=== PATIENT | female | born 1985 | race Caucasian/White ===

== ENCOUNTER → 2020-07-15 | Outpatient (CLI) | payer OTHER ==
[2020-07-15 09:19] LABS: BASO # 0.1 10^3/uL (0.0-0.2); BASO % 1.4 % (0.0-1.0); EOS # 0.2 10^3/uL (0.0-0.5); EOS % 3.1 % (0.0-3.0); HEMATOCRIT 42.2 % (36.0-47.0); HEMOGLOBIN 13.7 g/dl (12.0-15.5); LYMPH # 2.7 10^3/uL (1.5-5.0); MEAN CORPUSCULAR HEMOGLOBIN 27.1 pg (27.0-33.0); MEAN CORPUSCULAR HGB CONC 32.5 g/dl (32.0-36.5); MEAN CORPUSCULAR VOLUME 83.6 fl (80.0-96.0); MONO # 0.6 10^3/uL (0.0-0.8); MONO % 8.4 % (0.0-5.0); NEUTROPHILS % 45.8 % (36.0-66.0); PLATELET COUNT, AUTOMATED 321 10^3/uL (150-450); RED BLOOD COUNT 5.05 10^6/uL (4.00-5.40); WHITE BLOOD COUNT 6.5 10^3/uL (4.0-10.0)
[2020-07-15 10:31] LABS: ALBUMIN 3.5 GM/DL (3.2-5.2); ALT/SGPT 15 U/L (12-78); BILIRUBIN,TOTAL 0.4 MG/DL (0.2-1.0); BLOOD UREA NITROGEN 13 MG/DL (7-18); CALCIUM LEVEL 9.1 MG/DL (8.5-10.1); CARBON DIOXIDE LEVEL 25 MEQ/L (21-32); CHLORIDE LEVEL 107 MEQ/L (98-107); CHOLESTEROL LEVEL 192 MG/DL (<200); CHOLESTEROL RISK RATIO 5.189 (<5); CREATININE FOR GFR 1.02 MG/DL (0.55-1.30); GLOMERULAR FILTRATION RATE > 60.0 (>60); GLUCOSE, FASTING 98 MG/DL (70-100); HDL CHOLESTEROL 37 MG/DL (>40); LDL CHOLESTEROL 110 MG/DL (<100); NON-HDL-C 155 MG/DL; POTASSIUM SERUM 4.8 MEQ/L (3.5-5.1); SODIUM LEVEL 139 MEQ/L (136-145); TOTAL PROTEIN 6.9 GM/DL (6.4-8.2); TRIGLYCERIDES LEVEL 225 MG/DL (<150)
== END ==
LOC: M LAB 08:42
PROVIDERS: ATTEND Physician Assistant
DX: D72.829 Elevated white blood cell count, unspecified (principal); R73.03 Prediabetes

== ENCOUNTER → 2020-10-06 | Outpatient (CLI) | payer OTHER, MEDICAID | LOC: M LAB 09:24 | PROVIDERS: ATTEND Psychiatry & Neurology Psychiatry | DX: Z51.81 Encounter for therapeutic drug level monitoring (principal) ==

== ENCOUNTER → 2020-10-21 | Outpatient (CLI) | payer OTHER | LOC: M LAB 11:40 | PROVIDERS: ATTEND Psychiatry & Neurology Psychiatry | DX: Z51.81 Encounter for therapeutic drug level monitoring (principal) ==

== ENCOUNTER → 2021-04-21 | Outpatient (CLI) | payer OTHER, MEDICAID ==
[2021-04-21 12:49] LABS: HEMATOCRIT 43.7 % (36.0-47.0); HEMOGLOBIN 14.6 g/dl (12.0-15.5); MEAN CORPUSCULAR HEMOGLOBIN 28.7 pg (27.0-33.0); MEAN CORPUSCULAR HGB CONC 33.4 g/dl (32.0-36.5); MEAN CORPUSCULAR VOLUME 85.9 fl (80.0-96.0); PLATELET COUNT, AUTOMATED 323 10^3/uL (150-450); RED BLOOD COUNT 5.09 10^6/uL (4.00-5.40); WHITE BLOOD COUNT 6.9 10^3/uL (4.0-10.0)
[2021-04-21 13:24] LABS: ERYTHROCYTE SEDIMENTATION RATE 4 mm/hr (0-20)
[2021-04-21 13:46] LABS: ALBUMIN 3.2 GM/DL (3.2-5.2); ALT/SGPT 16 U/L (12-78); BILIRUBIN,TOTAL 0.2 MG/DL (0.2-1.0); BLOOD UREA NITROGEN 11 MG/DL (7-18); CALCIUM LEVEL 9.3 MG/DL (8.5-10.1); CARBON DIOXIDE LEVEL 24 MEQ/L (21-32); CHLORIDE LEVEL 109 MEQ/L (98-107); COMPLEMENT C3 135 MG/DL (90-180); CREATININE FOR GFR 0.85 MG/DL (0.55-1.30); FREE THYROXINE INDEX 3.7 % (1.3-4.8); GLOMERULAR FILTRATION RATE > 60.0 (>60); GLUCOSE, FASTING 101 MG/DL (70-100); POTASSIUM SERUM 4.7 MEQ/L (3.5-5.1); SODIUM LEVEL 139 MEQ/L (136-145); T UPTAKE 31 % (30-39); THYROXINE (T4) 11.9 UG/DL (4.5-12.0)
[2021-04-22 11:01] LABS: THYROGLOBULIN ANTIBODY < 15.0 U/ML (<60.0)
[2021-04-22 19:10] LABS: ANA (HEP2) Negative (.); COMPLEMENT TOTAL (CH50) > 60 U/mL (>41)
== END ==
LOC: M LAB 11:24
PROVIDERS: ATTEND Physician Assistant
DX: R21 Rash and other nonspecific skin eruption (principal)

== ENCOUNTER → 2021-05-22 | Outpatient (REF) | payer OTHER | LOC: M LAB REF 13:47 | PROVIDERS: ATTEND Physician Assistant | DX: L91.8 Other hypertrophic disorders of the skin (principal) ==

== ENCOUNTER → 2021-05-22 | Outpatient (CLI) | payer OTHER ==
[2021-05-22 13:24] LABS: RHEUMATOID FACTOR QUANT < 10.0 IU/ML (<15.0); TOTAL PROTEIN 6.8 GM/DL (6.4-8.2)
[2021-05-22 13:30] LABS: FOLATE 11.3 NG/ML (>5.4); VITAMIN B12 LEVEL 513 PG/ML (247-911)
== END ==
LOC: M LAB 12:13
PROVIDERS: ATTEND Psychiatry & Neurology Neurology
DX: R51.9 Headache, unspecified (principal); G60.9 Hereditary and idiopathic neuropathy, unspecified

== ENCOUNTER → 2025-03-06 | Outpatient (CLI) | payer OTHER ==
[2025-03-06 10:06] LABS: PLATELET COUNT, AUTOMATED 350 10^3/uL (150-450)
[2025-03-06 10:19] LABS: ESTIMATED AVERAGE GLUCOSE 120.0 MG/DL (60-110)
[2025-03-06 10:40] LABS: ALT/SGPT 24 U/L (7.0-40); AST/SGOT 21 U/L (<34); CALCIUM LEVEL 9.5 MG/DL (8.5-10.1); CARBON DIOXIDE LEVEL 25 MMOL/L (20-31); CHLORIDE LEVEL 108 MMOL/L (98-107); CHOLESTEROL LEVEL 194 MG/DL (<200); CHOLESTEROL RISK RATIO 5.21 (<5); CREATININE FOR GFR 0.78 MG/DL (0.55-1.30); GLOMERULAR FILTRATION RATE > 90.0 (>60); LDL CHOLESTEROL 92.6 MG/DL (<100); NON-HDL-C 156.8 MG/DL; POTASSIUM SERUM 4.6 MMOL/L (3.5-5.1); SODIUM LEVEL 142 MMOL/L (136-145); TRIGLYCERIDES LEVEL 321 MG/DL (<150)
[2025-03-06 10:42] LABS: FREE T4 1.16 NG/DL (0.89-1.76)
[2025-03-14 18:17] LABS: INSULIN FREE 11.5 uIU/mL (1.5-14.9); INSULIN TOTAL2 17.5 uIU/mL
== END ==
LOC: M LAB 09:17
PROVIDERS: ATTEND Physician Assistant
DX: R73.03 Prediabetes (principal)